=== PATIENT | female | born 1975 | race African-American/Black ===

== ENCOUNTER 2025-01-28 10:07 | Emergency (ER) | payer SELFPAY ==
[~2025-01-28] VITALS: Ht 162.6 cm; Wt 120.4 kg
[2025-01-28 10:10] VITALS: PULSE 60; RESP 20; TEMP 97.8; O2SAT 100
[2025-01-28] MEDS ORDERED: ACETAMINOPHEN-1 EAC4 PO (11:03)
[2025-01-28] MEDS ORDERED: PREDNISONE20 MG PO (11:08)
[2025-01-28] MEDS ORDERED: PLAQUENIL200 MG PO (11:08)
== END 2025-01-28 11:08 | disposition home or self-care (01) ==
LOC: FSED 10:28
DX: M79.18 Myalgia, other site (principal); I10 Essential (primary) hypertension; M32.9 Systemic lupus erythematosus, unspecified; Z11.52 Encounter for screening for COVID-19; R94.31 Abnormal electrocardiogram [ECG] [EKG]
CPT/HCPCS: 0223U; 87400; 93005; 99284